=== PATIENT | female | born 1985 | race Caucasian/White ===

== ENCOUNTER 2017-01-28 18:26 | Outpatient (CLI) | payer OTHER ==
[~2017-01-28 18:26] MED LIST: HYDROCODON-ACE1 EAC7 PO; IBUPROFEN800 MG PO; PRENATAL TABLE1 EAC3 PO
[2017-01-28 18:31] VITALS: BP 108/58
[2017-01-28 19:13] VITALS: BP 90/55
[2017-01-28 22:38] LABS: CANDIDA DNA PROBE NEGATIVE; GARDNERELLA DNA PROBE POSITIVE; INTERNAL CONTROL VALID? YES
== END 2017-01-28 20:00 | disposition home or self-care (01) ==
LOC: LDRP-OP 18:26 → 2WEST 18:27 → LDRP-OP 04-11 13:00
PROVIDERS: Obstetrics & Gynecology
DX: O46.93 Antepartum hemorrhage, unspecified, third trimester (principal); O26.893 Other specified pregnancy related conditions, third trimester; R10.9 Unspecified abdominal pain; R42 Dizziness and giddiness; O99.113 Other diseases of the blood and blood-forming organs and certain disorders involving the immune mechanism complicating pregnancy, third trimester; D69.6 Thrombocytopenia, unspecified; O34.219 Maternal care for unspecified type scar from previous cesarean delivery; Z96.643 Presence of artificial hip joint, bilateral; Z87.891 Personal history of nicotine dependence; Z83.3 Family history of diabetes mellitus; Z3A.34 34 weeks gestation of pregnancy
CPT/HCPCS: 59025; 87480; 87510; 87660; G0378

== ENCOUNTER 2017-02-11 20:48 | Outpatient (CLI) | payer OTHER ==
[2017-02-11 21:06] VITALS: BP 106/69
== END 2017-02-11 22:55 | disposition home or self-care (01) ==
LOC: LDRP-OP 20:48 → 2WEST 20:49 → LDRP-OP 04-11 20:33
DX: O35.8XX0 Maternal care for other (suspected) fetal abnormality and damage, not applicable or unspecified (principal); O34.219 Maternal care for unspecified type scar from previous cesarean delivery; O99.333 Smoking (tobacco) complicating pregnancy, third trimester; O99.113 Other diseases of the blood and blood-forming organs and certain disorders involving the immune mechanism complicating pregnancy, third trimester; Z3A.36 36 weeks gestation of pregnancy; D69.6 Thrombocytopenia, unspecified; Z96.643 Presence of artificial hip joint, bilateral; Z88.5 Allergy status to narcotic agent; Z88.8 Allergy status to other drugs, medicaments and biological substances; Z91.040 Latex allergy status
CPT/HCPCS: 59025; 76818; G0378

== ENCOUNTER 2017-03-04 07:49 | Inpatient (IN) | payer OTHER ==
[2017-03-04] VITALS (9 sets, daily range): BP systolic 96–121; BP diastolic 54–69
[~2017-03-04] VITALS: Ht 158.8 cm; Wt 64.9 kg
[2017-03-04 09:11] LABS: BASOPHIL (%) 0.3 % (0-1); EOSINOPHIL (%) 0.8 % (0-5); EOSINOPHIL COUNT 0.1 K/uL (0-0.3); HEMATOCRIT 30.3 % (36.0-46.0); HEMOGLOBIN 9.9 G/DL (11.9-15.5); IMMATURE GRANULOCYTE (%) 0.6 % (0.0-0.7); LYMPHOCYTE (%) 21.6 % (15-42); LYMPHOCYTE COUNT 1.4 K/uL (1.0-2.8); MCH 27.6 PG (29.0-34.0); MCHC 32.7 G/DL (30.0-36.0); MCV 84.4 FL (83-99); MONOCYTE (%) 6.2 % (3-12); MONOCYTE COUNT 0.4 K/uL (0-0.8); NEUTROPHIL (%) 70.5 % (45-76); NEUTROPHIL COUNT 4.6 K/uL (1.8-6.4); PLATELET COUNT 167 K/uL (156-360); RBC DIS.WIDTH-CV 12.7 % (11.8-14.6); RED BLOOD COUNT 3.59 M/uL (3.80-5.20); WHITE BLOOD COUNT 6.5 K/uL (4.1-10.2)
[2017-03-05 07:32] VITALS: BP 101/58
[2017-03-05 07:42] LABS: BASOPHIL (%) 0.2 % (0-1); EOSINOPHIL (%) 0.3 % (0-5); HEMATOCRIT 28.2 % (36.0-46.0); IMMATURE GRANULOCYTE (%) 0.4 % (0.0-0.7); LYMPHOCYTE (%) 14.6 % (15-42); LYMPHOCYTE COUNT 1.4 K/uL (1.0-2.8); MCH 27.3 PG (29.0-34.0); MCHC 31.9 G/DL (30.0-36.0); MCV 85.5 FL (83-99); MONOCYTE (%) 5.9 % (3-12); MONOCYTE COUNT 0.6 K/uL (0-0.8); NEUTROPHIL (%) 78.6 % (45-76); NEUTROPHIL COUNT 7.5 K/uL (1.8-6.4); PLATELET COUNT 199 K/uL (156-360); RBC DIS.WIDTH-CV 12.8 % (11.8-14.6); RBC DIS.WIDTH-SD 39.4 % (39-53); WHITE BLOOD COUNT 9.6 K/uL (4.1-10.2)
[2017-03-05 11:00] VITALS: BP 95/51
[2017-03-05 15:01] VITALS: BP 96/50
[2017-03-06 07:00] VITALS: BP 101/54
[2017-03-06] MEDS ORDERED: CHROMAGEN,1 CAPSULE PO (09:23)
[2017-03-06] MEDS ORDERED: IBUPROFEN800 MG PO (09:23)
[2017-03-06] MEDS ORDERED: ENDOCET 5-3251 EACH PO (09:23)
== END 2017-03-06 10:55 | disposition home or self-care (01) | DRG 766 ==
LOC: 2WEST 07:49 → 2SOUTH 09:04 → 2WEST 03-06 10:55
PROVIDERS: Obstetrics & Gynecology Obstetrics
DX: O34.211 Maternal care for low transverse scar from previous cesarean delivery (principal); Z37.0 Single live birth; Z3A.39 39 weeks gestation of pregnancy; Z30.2 Encounter for sterilization; O99.334 Smoking (tobacco) complicating childbirth; F17.200 Nicotine dependence, unspecified, uncomplicated; Z96.649 Presence of unspecified artificial hip joint; D50.9 Iron deficiency anemia, unspecified; O99.02 Anemia complicating childbirth
CPT/HCPCS: 85025; 86850; 86900; 86901; 88302; J1580; J1885; J2274; J2405; J7050; J7120